=== PATIENT | female | born 1975 | race Caucasian/White ===

== ENCOUNTER 2021-10-20 21:39 | Emergency (ER) | payer OTHER ==
[~2021-10-20] VITALS: Ht 160 cm; Wt 65.8 kg
[2021-10-20] MEDS ORDERED: TRAMADOL HCL 50 MG TAB PO STA (22:00)
[2021-10-20 22:41] LABS: CLARITY,URINE SL CLOUDY (CLEAR); COLOR,URINE YELLOW (YELLOW); LEUKOCYTE ESTERASE ,URINE SMALL (NEGATIVE); NITRITE,URINE NEGATIVE (NEGATIVE)
[2021-10-20 22:42] LABS: BACTERIA,URINE MODERATE /HPF; KETONES,URINE NEGATIVE (NEGATIVE); PROTEIN,URINE DIPSTICK 1+ (NEGATIVE); RBC,URINE 21-50 /HPF (0-5); URINE UROBILINOGEN 0.2 mg/dL (0.2 - 1); WBC,URINE (MAN) 21-50 /HPF (0-5)
[2021-10-20 22:43] LABS: EPITHELIAL CELLS,URINE MANY /LPF
[2021-10-20] MEDS ORDERED: ULTRAM 50MG50 MG PO (22:56)
== END 2021-10-20 23:35 | disposition home or self-care (01) ==
LOC: ER 21:49
DX: S02.2XXA Fracture of nasal bones, initial encounter for closed fracture (principal); M25.511 Pain in right shoulder; Y04.8XXA Assault by other bodily force, initial encounter; Y92.89 Other specified places as the place of occurrence of the external cause; G40.909 Epilepsy, unspecified, not intractable, without status epilepticus
CPT/HCPCS: 70450; 70486; 71046; 72125; 81001